=== PATIENT | female | born 1995 | race Caucasian/White ===

== ENCOUNTER 2018-01-25 18:21 | Emergency (ER) | payer OTHER ==
[~2018-01-25] VITALS: Ht 157.5 cm; Wt 49.9 kg
[~2018-01-25 18:21] MED LIST: FLEXERIL PO; IBUPROFEN 400400 M2 PO; NOHOMEMEDICATIONS; NORCO 5-325 TA1 EACH PO; ONDANSETRON HCL4 M2 PO; PRILOSEC20 MG PO; ZOFRAN4 MG PO; ZPAK PO
[2018-01-25] MEDS ORDERED: ACYCLOVIR 400400 MG PO (18:56)
[2018-01-25 19:22] VITALS: BP 134/78
== END 2018-01-25 19:23 | disposition home or self-care (01) ==
LOC: ER 18:21
DX: K12.0 Recurrent oral aphthae (principal); F17.200 Nicotine dependence, unspecified, uncomplicated

== ENCOUNTER 2018-10-21 14:35 | Emergency (ER) | payer OTHER ==
[~2018-10-21] VITALS: Ht 157.5 cm; Wt 49.9 kg
[~2018-10-21 14:35] MED LIST changes: +ACYCLOVIR 400400 MG PO
[2018-10-21 14:36] VITALS: BP 121/79
[2018-10-21] MEDS ORDERED: IBUPROFEN 600600 M1 PO (15:14)
== END 2018-10-21 15:37 | disposition home or self-care (01) ==
LOC: ER 14:35
DX: S50.02XA Contusion of left elbow, initial encounter (principal); W00.0XXA Fall on same level due to ice and snow, initial encounter; Y92.89 Other specified places as the place of occurrence of the external cause; Y93.89 Activity, other specified; Y99.8 Other external cause status

== ENCOUNTER 2018-10-26 19:33 | Emergency (ER) | payer OTHER ==
[~2018-10-26] VITALS: Ht 157.5 cm; Wt 49.9 kg
[~2018-10-26 19:33] MED LIST changes: +IBUPROFEN 600600 M1 PO
[2018-10-26] MEDS ORDERED: NAPROSYN500 MG PO (21:20)
[2018-10-26 22:00] VITALS: BP 125/76
== END 2018-10-26 22:02 | disposition home or self-care (01) ==
LOC: ER 19:33
DX: R51 Headache (principal); F17.210 Nicotine dependence, cigarettes, uncomplicated